=== PATIENT | male | born 1985 | race Caucasian/White ===

== ENCOUNTER 2017-06-08 08:39 | Emergency (ER) | payer MEDICAID ==
[2017-06-08 08:51] VITALS: BP 132/83
[2017-06-08] MEDS ORDERED: IBUPROFEN 600 MG TABLET PO ONE (09:30)
[2017-06-08] MEDS ORDERED: LIDOCAINE 5% (700 MG) TRANSDERMAL ADH..PATCH TP ONE (09:31)
--- NOTE | 2017-06-08 09:32 | ER Document Report ---
HPI - HPI Patient complains to provider of: Low back pain Onset: Other - 2 days ago Onset/Duration: Persistent Quality of pain: Achy Pain Level: 4 Context: Patient states he was at a trampoline park 2 days ago and was bouncing when another person bounced on the trampoline causing him to jar his back. Patient complains of continued low back pain since then. Patient denies any urinary symptoms. Associated Symptoms: denies: Fever Exacerbated by: Movement, Walking Relieved by: Denies Similar symptoms previously: No Recently seen / treated by doctor: No - ROS ROS below otherwise negative: Yes Systems Reviewed and Negative: Yes All other systems reviewed and negative - CONSTITUTIONAL Constitutional: DENIES: Fever - GASTROINTESTINAL Gastrointestinal: DENIES: Nausea - MUSCULOSKELETAL Musculoskeletal: REPORTS: Back Pain. DENIES: Extremity pain - DERM Skin Color: Normal Skin Problems: None Past Medical History - General Information source: Patient - Social History Smoking Status: Current Every Day Smoker Frequency of alcohol use: Occasional Drug Abuse: None Occupation: food service assistant Family History: Reviewed & Not Pertinent Neurological Medical History: Reports: Hx Migraine. Denies: Hx Seizures GI Medical History: Reports: Hx Gastroesophageal Reflux Disease - "heartburn" Musculoskeltal Medical History: Reports Hx Arthritis, Reports Hx Musculoskeletal Deformity, Reports Hx Musculoskeletal Trauma Psychiatric Medical History: Reports: Hx Depression Past Surgical History: Reports: Hx Oral Surgery - Immunizations Immunizations up to date: Yes Hx Diphtheria, Pertussis, Tetanus Vaccination: Yes Vertical Provider Document - CONSTITUTIONAL Agree With Documented VS: Yes Exam Limitations: No Limitations General Appearance: WD/WN, No Apparent Distress Notes: PHYSICAL EXAMINATION: GENERAL: Well-appearing, well-nourished and in no acute distress. HEAD: Atraumatic, normocephalic. EYES: sclera clear, anicteric, conjunctiva are normal. ENT: nares patent, Moist mucous membranes. NECK: Normal range of motion, supple no lymphadenopathy LUNGS: respirations unlabored HEART: Regular rate and rhythm without murmurs EXTREMITIES: Normal range of motion, no pitting or edema. No cyanosis. Gait normal, pt ambulates without difficulty BACK: Lower lumbar paraspinal tenderness, no midline tenderness, no deformities or step-offs. No CVA tenderness. NEUROLOGICAL: Cranial nerves grossly intact. Normal speech, normal gait. No saddle anesthesia. No foot drop PSYCH: Normal mood, normal affect. SKIN: Warm, Dry, normal turgor, no rashes or lesions noted. - INFECTION CONTROL TRAVEL OUTSIDE OF THE [place] IN LAST 30 DAYS: No - RESPIRATORY O2 Sat by Pulse Oximetry: 99 Course - Re-evaluation Re-evalutation: 06/08/17 09:30 The patient presents with low back pain without signs of spinal cord compression , cauda equina syndrome, infection, aneurysm, or other serious etiology. The patient is neurologically intact. Given the extremely risk of these diagnoses further testing and evaluation for these possibilities does not appear to be indicated at this time. Patient has been instructed to return if the symptoms worsen or change in any way. Controlled substance database reviewed - Vital Signs Vital signs: Temp Pulse Resp BP Pulse Ox 97.6 F 76 16 132/83 H 99 06/08/17 08:48 06/08/17 08:48 06/08/17 08:48 06/08/17 08:48 06/08/17 08:48 Discharge - Discharge Clinical Impression: Low back strain Qualifiers: Encounter type: initial encounter Qualified Code(s): S39.012A - Strain of muscle, fascia and tendon of lower back, initial encounter Condition: Stable Disposition: HOME, SELF-CARE Instructions: Ice Packs ([facility]), Low Back Pain ([facility]), Muscle Strain ([facility]), Warm Packs ([facility]) Additional Instructions: Return immediately for any new or worsening symptoms Followup with your primary care provider, call tomorrow to make a followup appointment Prescriptions: Methocarbamol [Robaxin 500 Mg Tablet] 500 mg PO QID PRN #20 tablet PRN Reason: Naproxen [Naprosyn 250 Nmg Tablet] 1 tab PO BID #14 tablet Forms: Smoking Cessation Education, Return to Work Referrals: [facility] [Provider Group] - Follow up as needed
== END 2017-06-08 09:46 | disposition home or self-care (01) ==
LOC: ER 08:39
DX: S39.012A Strain of muscle, fascia and tendon of lower back, initial encounter (principal); X58.XXXA Exposure to other specified factors, initial encounter; Y93.44 Activity, trampolining; Y92.838 Other recreation area as the place of occurrence of the external cause; F17.200 Nicotine dependence, unspecified, uncomplicated
CPT/HCPCS: 99283

== ENCOUNTER 2017-07-13 11:15 | Emergency (ER) | payer SELFPAY ==
[2017-07-13] MEDS ORDERED: IBUPROFEN 800 MG TABLET PO ONE (12:05)
--- NOTE | 2017-07-13 12:12 | ER Document Report ---
ED Skin Rash/Insect Bite/Abscs - General Chief Complaint: Skin Problem Stated Complaint: RASH ON HANDS Time Seen by Provider: 07/13/17 11:35 Mode of Arrival: Ambulatory Information source: Patient Notes: 32-year-old male presents to the ED for complaint of painful rash to the palms of both hands and the soles of both feet. He states he was sick on Friday with a cough and cold and body aches. He states yesterday the rash started first it was just a few bumps on his hand and this morning the bumps on his hands were burning like needles and pins and they were all over his palms and a few on his soles of his feet. He states he has a few bumps in his mouth that are painful and he feels like he might start to be getting some in his groin area. He is alert and oriented speaking in full sentences walking with a even steady gait. TRAVEL OUTSIDE OF THE [place] IN LAST 30 DAYS: No - HPI Patient complains to provider of: Skin rash/lesion Onset: Yesterday Onset/Duration: Gradual Quality of pain: Burning Severity: Moderate Pain Level: 4 Skin Character: Erythema, Rash Quality of rash: Itchy, Painful Identify cause: Yes - Fflw-zxca-apf-mouth disease Exacerbated by: Denies Relieved by: Denies Similar symptoms previously: No Recently seen / treated by doctor: No - Related Data Allergies/Adverse Reactions: No Known Allergies Allergy (Verified 06/08/17 08:41) Past Medical History - General Information source: Patient - Social History Smoking Status: Current Every Day Smoker Cigarette use (# per day): Yes - Half pack per day Chew tobacco use (# tins/day): No Smoking Education Provided: Yes Frequency of alcohol use: Social Drug Abuse: None Occupation: [employer] Lives with: Family Family History: Arthritis, CVA, Hyperlipidemia, Hypertension, Malignancy. denies: CAD, COPD, DM, Thyroid Disfunction Patient has suicidal ideation: No Patient has homicidal ideation: No - Past Medical History Cardiac Medical History: Reports: Hx Hypertension Pulmonary Medical History: Reports: None EENT Medical History: Reports: Ears - Reconstruction Neurological Medical History: Reports: Hx Migraine Endocrine Medical History: Reports: None Renal/ Medical History: Reports: None Malignancy Medical History: Reports None GI Medical History: Reports: Hx Gastroesophageal Reflux Disease - "heartburn" Musculoskeltal Medical History: Reports Hx Arthritis, Reports Hx Musculoskeletal Deformity, Reports Hx Musculoskeletal Trauma Skin Medical History: Reports None Psychiatric Medical History: Reports: Hx Depression Traumatic Medical History: Reports: Hx Fractures - Right hand clavicle left hand Infectious Medical History: Reports: None Past Surgical History: Reports: Hx Oral Surgery, Other - Ear reconstruction - Immunizations Immunizations up to date: Yes Hx Diphtheria, Pertussis, Tetanus Vaccination: Yes Review of Systems - Review of Systems Constitutional: No symptoms reported EENT: Other - Blisters to the oral hard palate Cardiovascular: No symptoms reported Respiratory: No symptoms reported Gastrointestinal: No symptoms reported Genitourinary: No symptoms reported Male Genitourinary: No symptoms reported Musculoskeletal: No symptoms reported Skin: Rash - Palms of hands soles the groin Hematologic/Lymphatic: No symptoms reported Neurological/Psychological: No symptoms reported -: Yes All other systems reviewed and negative Physical Exam - Vital signs Vitals: Temp Pulse Resp BP Pulse Ox 98.3 F 69 16 133/90 H 100 07/13/17 11:24 07/13/17 11:24 07/13/17 11:24 07/13/17 11:24 07/13/17 11:24 Interpretation: Normal - General General appearance: Appears well, Alert - HEENT Head: Normocephalic, Atraumatic Eyes: Normal Pupils: PERRL - Respiratory Respiratory status: No respiratory distress Chest status: Nontender Breath sounds: Normal Chest palpation: Normal - Cardiovascular Rhythm: Regular Heart sounds: Normal auscultation Murmur: No - Abdominal Inspection: Normal Distension: No distension Bowel sounds: Normal Tenderness: Nontender Organomegaly: No organomegaly - Back Back: Normal, Nontender - Extremities General upper extremity: Normal inspection, Nontender, Normal color, Normal ROM , Normal temperature General lower extremity: Normal inspection, Nontender, Normal color, Normal ROM , Normal temperature, Normal weight bearing. No: Gemma's sign - Neurological Neuro grossly intact: Yes Cognition: Normal Orientation: AAOx4 [place] Coma Scale Eye Opening: Spontaneous [place] Coma Scale Verbal: Oriented Isaac Coma Scale Motor: Obeys Commands Isaac Coma Scale Total: 15 Speech: Normal Motor strength normal: LUE, RUE, LLE, RLE Sensory: Normal - Psychological Associated symptoms: Normal affect, Normal mood - Skin Skin Temperature: Warm Skin Moisture: Dry Skin Color: Normal Location of irregularity: Face - Mouth, Extremities - Palms of hands soles of feet, Other - Groin Character of irregularity: Vesicular, Erythematous Irregularity with: Tenderness Course - Re-evaluation Re-evalutation: 07/13/17 20:38 Presentation of a otherwise healthy male. Presentation consistent with hand- gzgl-bqv-viuza disease. Vital signs are stable. Patient able to tolerate p.o. fluids while in the department. Otherwise appears well-hydrated male. Low clinical suspicion for any evidence of peritonsillar or retropharyngeal abscess , airway obstruction, secondary infection. Therefore I do not feel that any additional laboratory or imaging studies are required at this time. Discussed with q. 8 increase p.o. hydration and to medicate as needed for fever and discomfort with Tylenol and Motrin. Also discussed the utilization of Magic mouthwash and happy hiney cream for discomfort. Can follow-up with primary care - Vital Signs Vital signs: Temp Pulse Resp BP Pulse Ox 98.4 F 75 16 130/88 H 100 07/13/17 12:20 07/13/17 12:20 07/13/17 12:20 07/13/17 12:20 07/13/17 12:20 Discharge - Discharge Clinical Impression: Hand, foot and mouth disease Condition: Stable Disposition: HOME, SELF-CARE Instructions: Acetaminophen, Family Physicians / Practices, Use of Over-The- Counter Ibuprofen ([facility]) Additional Instructions: Hand, Foot and Mouth Disease Hand, Foot, and Mouth Disease (HFM) is caused by a virus. Symptoms include small ulcers in the mouth and spots or blisters on the palms, feet, or buttocks. A low grade fever for 2-3 days is common. The skin and mouth sores may last for 7-10 days. Hand, Foot, and Mouth Disease is contagious until one day after the fever is gone. Most of the time, symptoms are mild. If fluids are avoided due to painful mouth sores, dehydration may result. You can use oral anesthetics (Oragel, Anbesol) or liquid Benadryl to numb mouth sores. Use acetaminophen for pain and fever. Use cool liquids and foods that are easily chewed. Avoid citrus juices and spicy foods. To prevent spread of the virus, use good handwashing. Shared toys should be cleaned with disinfectant. Clean the toilets, sinks, and counter surfaces in bathrooms. Launder clothing in hot water. Return if there is a significant change for the worse, including high fever , severe pain, or dehydration. Signs of dehydration in a child can include progressive weakness, apathy, irritability, or no diaper wetting for over eight hours. Prescriptions: Ibuprofen 600 mg PO Q6HP PRN #20 tablet PRN Reason: Miscellaneous Medication [Happy Hiney Cream] 1 applic TOP ASDIR PRN #30 gm PRN Reason: Nystatin/Dexameth/Diphen [Magic Mouthwash ([facility] Formula) Susp] 5 ml PO QID #120 ml Forms: Elevated Blood Pressure, Return to Work
[2017-07-13 12:25] VITALS: BP 130/88
== END 2017-07-13 12:32 | disposition home or self-care (01) ==
LOC: ER 11:15
DX: B08.4 Enteroviral vesicular stomatitis with exanthem (principal); F17.210 Nicotine dependence, cigarettes, uncomplicated; I10 Essential (primary) hypertension
CPT/HCPCS: 99282

== ENCOUNTER 2018-04-10 06:58 | Emergency (ER) | payer SELFPAY ==
[2018-04-10] MEDS ORDERED: ONDANSETRON 4 MG TAB.RAPDIS PO ONE (09:24)
--- NOTE | 2018-04-10 09:25 | ER Document Report ---
ED General - General Chief Complaint: Flu Symptoms Stated Complaint: SORE THROAT Time Seen by Provider: 04/10/18 07:05 TRAVEL OUTSIDE OF THE [place] IN LAST 30 DAYS: No - HPI Patient complains to provider of: Sore throat flulike symptoms Notes: Patient coming in for sore throat flulike symptoms nausea vomiting feeling unwell. States that his son has been at home as well with fevers approximate week prior to him becoming sick. Patient denies any recent antibiotics denies any recent travel. Patient states he does smoke however not having any other underlying medical issues. Patient otherwise looks to be in no acute distress upon my evaluation. - Related Data Allergies/Adverse Reactions: No Known Allergies Allergy (Verified 06/08/17 08:41) Past Medical History - Social History Smoking Status: Current Every Day Smoker Frequency of alcohol use: Occasional Drug Abuse: None Family History: Arthritis, CVA, Hyperlipidemia, Hypertension, Malignancy. denies: CAD, COPD, DM, Thyroid Disfunction Patient has suicidal ideation: No Patient has homicidal ideation: No - Past Medical History Cardiac Medical History: Reports: Hx Hypertension Neurological Medical History: Reports: Hx Migraine. Denies: Hx Seizures Renal/ Medical History: Denies: Hx Peritoneal Dialysis GI Medical History: Reports: Hx Gastroesophageal Reflux Disease - "heartburn" Musculoskeletal Medical History: Reports Hx Arthritis, Reports Hx Musculoskeletal Deformity, Reports Hx Musculoskeletal Trauma Psychiatric Medical History: Reports: Hx Depression Traumatic Medical History: Reports: Hx Fractures - Right hand clavicle left hand Past Surgical History: Reports: Hx Oral Surgery, Other - Ear reconstruction - Immunizations Immunizations up to date: Yes Hx Diphtheria, Pertussis, Tetanus Vaccination: Yes Review of Systems - Review of Systems Constitutional: Fever EENT: No symptoms reported Cardiovascular: No symptoms reported Respiratory: No symptoms reported Gastrointestinal: Nausea, Vomiting Genitourinary: No symptoms reported Male Genitourinary: No symptoms reported Musculoskeletal: No symptoms reported Skin: No symptoms reported Hematologic/Lymphatic: No symptoms reported Neurological/Psychological: No symptoms reported -: Yes All other systems reviewed and negative Physical Exam - Vital signs Vitals: Temp Pulse Resp BP Pulse Ox 99.6 F 95 20 113/66 97 04/10/18 07:02 04/10/18 07:02 04/10/18 07:02 04/10/18 07:02 04/10/18 07:02 Interpretation: Normal - General General appearance: Appears well, Alert - HEENT Head: Normocephalic, Atraumatic Eyes: Normal Conjunctiva: Normal Cornea: Normal Extraocular movements intact: Yes Eyelashes: Normal Pupils: PERRL Ears: Normal External canal: Normal Tympanic membrane: Normal Sinus: Normal Nasal: Normal Mouth/Lips: Normal Pharynx: Normal Neck: Normal - Respiratory Respiratory status: No respiratory distress Chest status: Nontender Breath sounds: Normal Chest palpation: Normal - Cardiovascular Rhythm: Regular Heart sounds: Normal auscultation Murmur: No - Abdominal Inspection: Normal Distension: No distension Bowel sounds: Normal Tenderness: Nontender Organomegaly: No organomegaly - Back Back: Normal, Nontender - Extremities General upper extremity: Normal inspection, Nontender, Normal color, Normal ROM, Normal temperature General lower extremity: Normal inspection, Nontender, Normal color, Normal ROM, Normal temperature, Normal weight bearing. No: Gemma's sign - Neurological Neuro grossly intact: Yes Cognition: Normal Orientation: AAOx4 [place] Coma Scale Eye Opening: Spontaneous Isaac Coma Scale Verbal: Oriented Isaac Coma Scale Motor: Obeys Commands Isaac Coma Scale Total: 15 Speech: Normal Motor strength normal: LUE, RUE, LLE, RLE Sensory: Normal - Psychological Associated symptoms: Normal affect, Normal mood - Skin Skin Temperature: Warm Skin Moisture: Dry Skin Color: Normal Course - Re-evaluation Re-evalutation: 04/10/18 15:54 The patient presents with nausea vomiting flulike symptoms without signs of peritonitis or other life-threatening or serious etiology. The patient appears stable for discharge and has been instructed to return immediately if the symptoms worsen in any way, or in 8-12hr if not improved for re-evaluation. The patient has been instructed to return if the symptoms worsen or change in any way. - Vital Signs Vital signs: Temp Pulse Resp BP Pulse Ox 98.9 F 82 18 111/70 95 04/10/18 09:45 04/10/18 09:45 04/10/18 09:45 04/10/18 09:45 04/10/18 09:45 Discharge - Discharge Clinical Impression: Flu-like symptoms Condition: Good Disposition: HOME, SELF-CARE Instructions: Acetaminophen, Gastroenteritis (adult) ([facility]), Influenza ([facility]) [id number] Additional Instructions: Your examination today is consistent with a viral illness possibility of being influenza. Treatment will involved pain control and fever control with Tylenol and Motrin we will treat her nausea with Zofran and Phenergan I highly recommend drinking plenty of fluids to stay well-hydrated if you do feel like eating please avoid foods that are fatty greasy or oily Prescriptions: Ibuprofen [Motrin 600 mg Tablet] 600 mg PO Q8HP PRN #21 tablet PRN Reason: Ondansetron HCl [Zofran 4 mg Tablet] 1 - 2 tab PO Q6 #30 tablet Promethazine HCl [Phenergan 25 mg Tablet] 25 mg PO Q6 #30 tablet Forms: Smoking Cessation Education, Return to Work
[2018-04-10 09:47] VITALS: BP 111/70
== END 2018-04-10 09:54 | disposition home or self-care (01) ==
LOC: ER 06:58
DX: J02.9 Acute pharyngitis, unspecified (principal); R11.2 Nausea with vomiting, unspecified; R50.9 Fever, unspecified; I10 Essential (primary) hypertension; F17.200 Nicotine dependence, unspecified, uncomplicated
CPT/HCPCS: 99283; 87070; 87880; 87077; S0119

== ENCOUNTER 2019-01-09 07:35 | Emergency (ER) | payer SELFPAY ==
[2019-01-09] MEDS ORDERED: DIAZEPAM INJ 10 MG/2 ML DISP.SYRIN IM ONE (08:54)
[2019-01-09] MEDS ORDERED: LIDOCAINE 5% (700 MG) TRANSDERMAL ADH..PATCH TP ONE (08:54)
[2019-01-09] MEDS ORDERED: KETOROLAC TROMETHAMINE 60 MG/2 ML SDV IM ONE (08:54)
[2019-01-09] MEDS ORDERED: DEXAMETHASONE SOD PHOS INJ 10 MG/1 ML VIAL IM ONE (08:54)
[2019-01-09] MEDS ORDERED: ACETAMINOPHEN 325 MG TABLET PO ONE (08:55)
--- NOTE | 2019-01-09 08:57 | ER Document Report ---
HPI - HPI Patient complains to provider of: low back pain Time Seen by Provider: 01/09/19 08:42 Pain Level: 3 Context: 33-year-old male with history of low back pain presents to the emergency department for acute low back pain since Friday. Patient states that he was laying in bed around midnight and he sneezed and immediately felt a spasm in his back. Patient has been in acute pain since and is having trouble ambulating. Denies urinary retention, denies saddle anesthesia, denies bowel incontinence, denies fevers, denies IV drug use. Past Medical History - Social History Smoking Status: Unknown if Ever Smoked Family History: Arthritis, CVA, Hyperlipidemia, Hypertension, Malignancy. denies: CAD, COPD, DM, Thyroid Disfunction Patient has suicidal ideation: No Patient has homicidal ideation: No - Past Medical History Cardiac Medical History: Reports: Hx Hypertension Neurological Medical History: Reports: Hx Migraine. Denies: Hx Seizures Renal/ Medical History: Denies: Hx Peritoneal Dialysis GI Medical History: Reports: Hx Gastroesophageal Reflux Disease - "heartburn" Musculoskeletal Medical History: Reports Hx Arthritis, Reports Hx Musculo skeletal Deformity, Reports Hx Musculoskeletal Trauma Psychiatric Medical History: Reports: Hx Depression Traumatic Medical History: Reports: Hx Fractures - Right hand clavicle left hand Past Surgical History: Reports: Hx Oral Surgery, Other - Ear reconstruction - Immunizations Immunizations up to date: Yes Hx Diphtheria, Pertussis, Tetanus Vaccination: Yes Vertical Provider Document - CONSTITUTIONAL Notes: PHYSICAL EXAMINATION: Reviewed vital signs and charting by RN GENERAL: Alert, interacts well. No acute distress. HEAD: Normocephalic, atraumatic. EYES: Pupils equal and round. Extraocular movements intact. ENT: Oral mucosa moist, tongue midline. NECK: Full range of motion. Trachea midline. LUNGS: Clear to auscultation bilaterally, no wheezes, rales, or rhonchi. No respiratory distress. HEART: Regular rate and rhythm. No murmur ABDOMEN: soft, non-tender. No distention. Bowel sounds present EXTREMITIES: Moves all 4 extremities spontaneously. No edema, No cyanosis. 5 out of 5 strength both distally and proximally bilateral lower extremities. 2+ patellar reflexes bilaterally. No clonus. Sensation grossly intact in the bilateral lower extremities. Patient is able to ambulate without difficulty. PSYCH: Normal affect, normal mood. SKIN: Warm, dry, normal turgor. No rashes or lesions noted. - INFECTION CONTROL TRAVEL OUTSIDE OF THE [place] IN LAST 30 DAYS: No Course - Re-evaluation Re-evalutation: 01/09/19 08:57 Presentation of a well appearing patient complaining of acute on chronic back pain. No rapid progression of symptoms, systemic symptoms including fevers, chills, weight loss, history of recent bacterial infection, bilateral symptoms, numbness, weakness, difficulty walking, urinary retention or bowel incontinence, personal history of cancer, immunosuppression, diabetes, known AAA, or history of IV drug use. Exam is without point tenderness over vertebral bodies, pulsatile abdominal mass, and patient has symmetric and intact lower extremity strength, sensation, and reflexes without clonus. 2+ symmetric medial malleolar and dorsalis pedis pulses Based on history and physical, I have a very low suspicion of a concerning etiology of pain including epidural compression syndrome, spinal infection, transverse myelitis, malignancy, abdominal aortic aneurysm, renal colic, acute lower extremity claudication, neurogenic claudication, ankylosing spondylitis, or other intra-abdominal process. Due to absence of concerning risk factors in history and physical as well as absence of rapidly progressive, severe, or bilateral symptoms, will defer imaging at this point. 01/09/19 19:54 Discharge - Discharge Clinical Impression: Back pain Qualifiers: Back pain location: low back pain Chronicity: acute Back pain laterality: bilateral Sciatica presence: with sciatica Sciatica laterality: sciatica of right side Qualified Code(s): M54.41 - Lumbago with sciatica, right side Condition: Good Disposition: HOME, SELF-CARE Instructions: Low Back Pain ([facility]), Pain Medication Injection ([facility]), Warm Packs ([facility]) Additional Instructions: You have been seen in the Emergency Department (ED) today for back pain. Your workup and exam have not shown any acute abnormalities and you are likely suffering from muscle strain or possible problems with your discs, but there is no treatment that will fix your symptoms at this time. Please take Motrin 600 mg every 6 hours and/or Tylenol every 6 hours for pain/inflammation. You should also purchase a local lidocaine cream such as "aspercreme with lidocaine" and use per bottle instructions to the affected area. Apply heat to the area as often as you are able. Continue to keep active and avoid prolonged periods of bed rest. Please follow up with your doctor as soon as possible regarding today's ED visit and your back pain. Return to the ED for worsening back pain, fever, weakness or numbness of either leg, or if you develop either (1) an inability to urinate or have bowel movements, or (2) loss of your ability to control your bathroom functions (if you start having "accidents"), or if you develop other new symptoms that concern you.concern you. Prescriptions: Diazepam 10 mg PO Q8H PRN #9 tablet PRN Reason: Forms: Return to Work
[2019-01-09 09:53] VITALS: BP 136/80
== END 2019-01-09 09:52 | disposition home or self-care (01) ==
LOC: ER 07:35
DX: M54.41 Lumbago with sciatica, right side (principal); G89.29 Other chronic pain; R06.7 Sneezing; I10 Essential (primary) hypertension
CPT/HCPCS: J3360; J1885; J1100; 96372; 99283